=== PATIENT | male | born 2000 ===

== ENCOUNTER 2021-09-18 17:14 | Emergency (ER) | payer MEDICAID ==
[2021-09-18] MEDS ORDERED: ONDANSETRON 4 MG ODT TAB PO ONE (18:46)
[2021-09-18] MEDS ORDERED: FAMOTIDINE 20 MG TAB PO ONE (18:56)
[2021-09-18 19:39] LABS: Basophils # (Auto) 0.1 K/mm3 (0.0-0.1); Basophils % (Auto) 0.8 % (0.0-1.8); Eosinophils # (Auto) 0.2 K/mm3 (0.0-0.4); Eosinophils % (Auto) 2.5 % (0.0-4.3); Hematocrit 39.7 % (35.5-45.6); Hemoglobin 12.4 gm/dl (11.8-15.2); Mean Corpuscular HGB Conc 31 % (32-34); Mean Corpuscular Volume 85 fl (84-94); Monocytes # (Auto) 0.5 K/mm3 (0.0-0.8); Monocytes % (Auto) 7.6 % (0.0-7.3); Platelet Count 320 K/mm3 (140-440); Red Blood Count 4.69 M/mm3 (3.65-5.03); Red Cell Distribution Width 14.6 % (13.2-15.2)
[2021-09-18 20:02] LABS: Alanine Aminotransferase 14 units/L (7-56); Albumin 4.7 g/dL (3.9-5); Blood Urea Nitrogen 12 mg/dL (9-20); Calcium 9.2 mg/dL (8.4-10.2); Hemolysis Index 6
[2021-09-18] MEDS ORDERED: POTASSIUM CHLORIDE ER 20 MEQ TAB PO ONE (20:05)
--- NOTE | 2021-09-18 20:11 | Emergency Department Report ---
ED General Adult HPI - General Chief complaint: Medical Clearance Stated complaint: VOMITING,BLOOD Time Seen by Provider: 09/18/21 18:16 Source: EMS Mode of arrival: Stretcher Limitations: No Limitations - History of Present Illness Initial comments: 21-year-old male patient presents via EMS for nausea and vomiting starting today. He states he has been having epigastric pain and rates it as a 6/10 in severity. He describes the pain as burning. He denies any chest pain, cough, shortness of breath. No past medical history or history of abdominal surgeries per patient. He also denies any fever/chills/sweats, hemoptysis/coffee-ground emesis, diarrhea/hematochezia/constipation/melena. Patient has not tried any medications for his symptoms. Severity scale (0 -10): 0 - Related Data Previous Rx's Medication Instructions Recorded Last Taken Type Famotidine [Pepcid] 20 mg PO BID #10 tablet 09/18/21 Unknown Rx Ondansetron [Zofran Odt] 4 mg PO Q8HR PRN #15 tab.rapdis 09/18/21 Unknown Rx Allergies Allergy/AdvReac Type Severity Reaction Status Date / Time No Known Allergies Allergy Verified 09/18/21 17:28 ED Review of Systems ROS: Stated complaint: VOMITING,BLOOD Other details as noted in HPI Constitutional: denies: chills, fever Respiratory: denies: cough, shortness of breath Cardiovascular: denies: chest pain Gastrointestinal: abdominal pain, nausea, vomiting. denies: diarrhea, constipation, hematemesis, melena, hematochezia Musculoskeletal: denies: back pain Skin: denies: rash, lesions Neurological: denies: headache ED Past Medical Hx - Past Medical History Additional medical history: ADHD - Medications Home Medications: Home Medications Medication Instructions Recorded Confirmed Last Taken Type Famotidine [Pepcid] 20 mg PO BID #10 tablet 09/18/21 Unknown Rx Ondansetron [Zofran Odt] 4 mg PO Q8HR PRN #15 tab.rapdis 09/18/21 Unknown Rx ED Physical Exam - General Limitations: No Limitations General appearance: alert, in no apparent distress - Head Head exam: Present: atraumatic, normocephalic - Eye Eye exam: Present: normal appearance. Absent: scleral icterus - Respiratory Respiratory exam: Present: normal lung sounds bilaterally. Absent: respiratory distress - Cardiovascular Cardiovascular Exam: Present: regular rate, normal rhythm. Absent: systolic murmur, diastolic murmur, rubs, gallop - GI/Abdominal GI/Abdominal exam: Present: soft, tenderness (Epigastric, mild), normal bowel sounds. Absent: distended, guarding, rebound, rigid - Expanded GI/Abdominal Exam Expanded GI/Abdominal exam: Absent: Duron's sign - Neurological Exam Neurological exam: Present: alert, oriented X3, normal gait - Psychiatric Psychiatric exam: Present: normal affect, normal mood - Skin Skin exam: Present: warm, dry, intact, normal color. Absent: rash, diaphoretic ED Course Vital Signs 09/18/21 09/18/21 17:27 18:46 Temperature 98.1 F Pulse Rate 130 H 74 Respiratory 16 Rate Blood Pressure 163/70 [Right] O2 Sat by Pulse 100 Oximetry ED Medical Decision Making - Lab Data Result diagrams: 09/18/21 19:22 09/18/21 19:22 - Medical Decision Making 21-year-old male patient presents via EMS for nausea and vomiting s tarting today. He states he has been having epigastric pain and rates it as a 6/10 in severity. He describes the pain as burning. He denies any chest pain, cough, shortness of breath. No past medical history or history of abdominal surgeries per patient. He also denies any fever/chills/sweats, hemoptysis/coffee-ground emesis, diarrhea/hematochezia/constipation/melena. Patient has not tried any medications for his symptoms. No acute abnormalities noted on labs. Minimal epigastric tenderness noted on exam without rebound or guarding. Patient given Zofran and Pepcid orally and states his symptoms have significantly improved. He is tolerating fluids here in the ED p.o. without difficulty. No vomiting observed since he has been here in ED. Patient is stable for discharge home. Meds given for symptoms. Recommend follow-up with primary care doctor within 3 to 5 days. Discussed in detail signs and symptoms that should prompt immediate return to the emergency department with patient who verbalized understanding Critical care attestation.: If time is entered above; I have spent that time in minutes in the direct care of this critically ill patient, excluding procedure time. ED Disposition Clinical Impression: Nausea and vomiting Disposition: HOME / SELF CARE / HOMELESS Is pt being admited?: No Condition: Stable Instructions: Nausea and Vomiting, Adult, [id number] Prescriptions: Famotidine [Pepcid] 20 mg PO BID #10 tablet Ondansetron [Zofran Odt] 4 mg PO Q8HR PRN #15 tab.rapdis PRN Reason: Nausea And Vomiting Referrals: PRIMARY CARE, [Primary Care Provider] - 3-5 Days [facility] [Provider Group] - 3-5 Days
[2021-09-18 20:32] LABS: BUN/Creatinine Ratio 17
[2021-09-18 20:41] VITALS: BP 134/78
--- NOTE | 2021-09-22 13:32 | Electrocardiograph Report ---
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
== END 2021-09-18 20:41 | disposition home or self-care (01) ==
LOC: EDBD → ED 17:14
DX: R11.2 Nausea with vomiting, unspecified (principal); F90.9 Attention-deficit hyperactivity disorder, unspecified type
CPT/HCPCS: 36415; 80053; 83690; 85025; 93005; 93010; 99284; J3490; Q0162